=== PATIENT | male | born 1975 | race Caucasian/White ===

== ENCOUNTER 2021-02-25 20:59 | Emergency (ER) | payer OTHER, SELFPAY ==
--- NOTE | ~2021-02-25 | XR_ITS ---
EXAMINATION: XR chest 1V portable EXAM DATE: 02/25/2021 22:50 INDICATION: Cough, shortness of breath, body aches, fever and chills. TECHNIQUE: Frontal and lateral projections of the chest obtained and reviewed. There is no prior ananya dy for comparison. FINDINGS: Small to moderate amount of right lower lobe, small amount of left lower lobe airspace dise ase probably pneumonia. Cardiomediastinal silhouette is normal. There is no pneumothorax suspected. T here are no pleural effusions. There are no osseous abnormalities identified. IMPRESSION: Bibasilar pneumonia. Reviewed, dictated and finalized at location A. PRIOR AUTHORIZATION IMPRESSION: Bibasilar pneumonia.
[2021-02-25 21:03] VITALS: BP 114/64; PULSE 99; RESP 17; TEMP 36.6; O2SAT 99
[2021-02-25] MEDS: KETOROLAC 15 MG/ML VIAL (*BKC) IV PUSH (23:00)
[2021-02-25] MEDS: SODIUM CHLORIDE 0.9% IV 1,000 ML 999 ML IV CONT (23:00)
[2021-02-25 23:10] LABS: Basophils Absolute Auto 0.1 K/mm3 (0.0-0.1); Basophils Percent Auto 0.5 % (0.2-1.2); Eosinophils Absolute Auto 0.3 K/mm3 (0-0.3); Hematocrit 41.2 % (42.0-52.0); Hemoglobin 14.6 g/dL (14.0-18.0); Immature Granulocyte Absolute 0.09 K/mm3 (0.00-0.031); Immature Granulocyte Percent A 0.7 % (0-0.5); Lymphocytes Absolute Auto 2.57 K/mm3 (0.9-3.2); Lymphocytes Percent Auto 20.2 % (18.3-44.2); Mean Corpuscular HGB Conc 35.4 g/dl (32-36); Mean Corpuscular Hemoglobin 31.3 pg (26-34); Mean Corpuscular Volume 88.4 fl (80-100); Monocytes Percent Auto 7.5 % (2.6-8.5); Neutrophils Absolute Auto 8.8 K/mm3 (1.3-6.7); Neutrophils Percent Auto 69.1 % (45.5-73.1); Platelet Count Result 370 k/mm3 (150-375); Red Blood Count 4.66 M/mm3 (4.6-6.20); Red Cell Distribution Width 12.2 % (11.5-14.5); White Blood Count 12.8 K/mm3 (4.5-10.0)
[2021-02-25 23:22] LABS: Alanine Aminotransferase 41 U/L (4-50); Albumin Level 3.8 g/dL (3.5-5.1); Alkaline Phosphatase 116 U/L (38-126); Anion Gap 5 mmol/L (8-16); Aspartate Amino Transferase 42 U/L (17-59); Bilirubin,Total 0.5 mg/dL (0.2-1.3); Blood Urea Nitrogen 19 mg/dL (9-20); Calcium 9.2 mg/dL (8.4-10.2); Carbon Dioxide 29 mmol/L (22-30); Chloride 101 mmol/L (98-107); Estimated CRCL calculation 88 ml/min; Estimated Glomerular Filt Rate > 60; Glucose 126 mg/dL (65-110); Potassium 3.8 mmol/L (3.4-5.0); Sodium 135 mmol/L (137-145)
[2021-02-25 23:32] VITALS: BP 106/73; PULSE 89; RESP 16; O2SAT 99
--- NOTE | 2021-02-25 23:32 | PC.NURSE ---
Assumed care of pt at this time. Pt alert and upright on stretcher, denies pain or SOB. Pt updated on POC.
--- NOTE | 2021-02-26 00:28 | ED.URI ---
HPI - URI/Sore Throat General Chief Complaint: Upper Respiratory Infection Stated Complaint: fevewr, chills cough Time Seen by Provider: 02/25/21 22:14 Source: patient History of Present Illness HPI Narrative: Patient presents with fevers cough, shortness of breath and diffuse body aches. Reports symptoms present for the past few days and appear to be getting worse. Has been trying home therapies but is been unsuccessful. His pain is achy, constant, everywhere and everything makes his pain worse. Denies any nausea or vomiting denies any diarrhea denies known sick contacts. Related Data Allergies Allergy/AdvReac Type Severity Reaction Status Date / Time No Known Allergies Allergy Verified 02/25/21 21:23 Review of Systems Review of Systems: CONSTITUTIONAL: Reports fevers EYES: Denies visual changes, redness, or discharge. ENT: Reports congestion CARDIOVASCULAR: Denies , palpitations, or edema. RESPIRATORY: Reports cough and shortness of breath GASTROINTESTINAL: Denies abdominal pain, nausea, vomiting, or diarrhea. GENITOURINARY: Denies dysuria or hematuria. SKIN: Denies rash or itching. MUSCULOSKELETAL: Denies back pain, joint pain, or myalgia. NEUROLOGIC: Denies headache, numbness, dizziness, or weakness. PSYCHIATRIC: Denies anxiety or depression. All systems reviewed & are unremarkable except as noted in HPI and below PMFSH Past Medical History Medical History (Updated 02/26/21 @ 01:03 by Trevon Shaw MD) Pulmonary nodule Social History Social History (Updated 02/26/21 @ 01:00 by Trevon Shaw MD) Substance use type: marijuana Exam Narrative: GENERAL: Well-appearing, well-nourished, and in no acute distress. HEAD: Normocephalic, atraumatic. EYES: PERRLA and EOMI. ENT: Nares clear, no rhinorrhea or epistaxis. Mucous membranes moist. NECK: Supple. No masses. No JVD CHEST: Clear to auscultation. No respiratory distress. No wheezes rales or rhonchi HEART: Regular rate and rhythm. No murmur heard. Normal peripheral pulses. ABDOMEN: Soft, nontender, nondistended, normal active bowel sounds. EXTREMITIES: Normal range of motion. No edema. SKIN: Warm, dry, no rash. NEURO: No focal deficits. Alert and oriented x3. PSYCH: Normal mood and affect. Course Reevaluation(s) Reevaluation #1: Patient resting comfortably results and plan reviewed with patient. Patient comfortable outpatient plan Date: 02/26/21 Time: 01:00 Vital Signs Vital signs: Vital Signs Temperature 36.6 C 02/25/21 21:03 Pulse Rate 99 02/25/21 21:03 Respiratory Rate 17 02/25/21 21:03 Blood Pressure 114/64 02/25/21 21:03 Pulse Oximetry 99 02/25/21 21:03 Temperature 36.6 C 02/25/21 21:03 Pulse Rate 86 02/26/21 01:16 Respiratory Rate 16 02/26/21 01:16 Blood Pressure 109/69 02/26/21 01:16 Pulse Oximetry 99 02/26/21 01:16 MDM - URI/Sore Throat MDM Narrative Medical decision making narrative: H&P as above, vss, pt looks clinically well, exam reassuring, labs with leukocytosis, img with opacity in the right lower lobe possible pneumonia, additional labs/img considered, symptomatic relief available as needed, on reevaluation pt continues to looks clinically well. Suspect pneumonia patient may have Covid versus bacterial pneumonia or empirically cover for bacterial pneumonia while Covid test is pending, dns severe sepsis, severe dehydration, pneumothorax. plan to tx/monitor as op w/ pcm f/u findings/plan discussed with pt, pt agree/comfortable with plan, return precautions given Lab Data Result diagrams: 02/25/21 22:58 02/25/21 22:58 Labs: Lab Results 02/25/21 02/25/21 02/25/21 Range/Units 22:58 22:58 22:58 WBC 12.8 H (4.5-10.0) K/mm3 RBC 4.66 (4.6-6.20) M/mm3 Hgb 14.6 (14.0-18.0) g/dL Hct 41.2 L (42.0-52.0) % MCV 88.4 (80-100) fl MCH 31.3 (26-34) pg MCHC 35.4 (32-36) g/dl RDW 12.2 (11.5-14.5) % Plt Count 370 (150-375)
[2021-02-26 01:16] VITALS: BP 109/69; PULSE 86; RESP 16; O2SAT 99
[2021-02-27 18:36] LABS: SARS-CoV-2 RNA PCR Negative
== END 2021-02-26 01:18 | disposition home or self-care (01) ==
PROVIDERS: Emergency Provider Emergency Medicine; PCP Nurse Practitioner Family
DX: J18.9 Pneumonia, unspecified organism (principal); Z20.822 Contact with and (suspected) exposure to COVID-19
CPT/HCPCS: 36415; 71045; 80053; 85025; 96361; 96374; 99284; C9803; J1885; J7030; U0003; U0005